=== PATIENT | female | born 1995 | race American Indian/Alaskan Native ===

== ENCOUNTER 2017-02-10 18:39 | Emergency (ER) | payer MEDICAID ==
[2017-02-10 18:53] VITALS: BP 120/57
[2017-02-10 19:28] LABS: Basophils % (Auto) 0.4 % (0.0-1.8); Eosinophils % (Auto) 2.4 % (0.0-4.3); Hematocrit 33.5 % (30.3-42.9); Hemoglobin 10.4 gm/dl (10.1-14.3); Mean Corpuscular HGB Conc 31 % (30-34); Mean Corpuscular Volume 80 fl (79-97); Platelet Count 299 K/mm3 (140-440); Red Cell Distribution Width 16.8 % (13.2-15.2); White Blood Count 11.2 K/mm3 (4.5-11.0)
[2017-02-10 19:29] LABS: Mean Corpuscular Hemoglobin 25 pg (28-32)
[2017-02-10 19:41] LABS: Alanine Aminotransferase 17 units/L (7-56); Albumin 3.7 g/dL (3.9-5); Albumin/Globulin Ratio 1.1 %; Alkaline Phosphatase 68 units/L (35-129); Anion Gap 15 mmol/L; BUN/Creatinine Ratio 16; Blood Urea Nitrogen 8 mg/dL (7-17); Calcium 9.1 mg/dL (8.4-10.2); Carbon Dioxide 27 mmol/L (22-30); Chloride 102.9 mmol/L (98-107); Glucose 88 mg/dL (65-100); Lipase 86 units/L (13-60); Potassium 4.3 mmol/L (3.6-5.0); Sodium 141 mmol/L (137-145); Total Protein 7.1 g/dL (6.3-8.2)
[2017-02-10 20:36] LABS: Bacteria,Urine 1+ /HPF (Negative); Bilirubin,Urine NEG (Negative); Blood,Urine NEG (Negative); Ketones,Urine NEG (Negative); Leukocyte Esterase,Urine MOD (Negative); Nitrite,Urine NEG (Negative); Protein,Urine <15 mg/dL mg/dL (Negative); Urobilinogen,Urine < 2.0 mg/dL (<2.0)
== END 2017-02-11 01:30 | disposition left against medical advice (07) ==
LOC: ED 18:39
DX: R07.9 Chest pain, unspecified (principal); Z53.21 Procedure and treatment not carried out due to patient leaving prior to being seen by health care provider
CPT/HCPCS: 36415; 80053; 81001; 83690; 84703; 85025; 93005; 93010

== ENCOUNTER 2017-02-11 14:34 | Emergency (ER) | payer MEDICAID ==
[2017-02-11 14:56] VITALS: BP 109/74
--- NOTE | 2017-02-11 15:31 | Emergency Department Report ---
Chief Complaint: Chest Pain Stated Complaint: CHEST PAIN Time Seen by Provider: 02/11/17 14:57 - HPI History of Present Illness: 21-year-old female past medical history obesity presents with complaint of treated 3 days of intermittent epigastric pain radiating to the back worse after eating with associated nausea and vomiting. Patient is awake alert and oriented 3 states that her primary symptom is nausea and states that it is worse immediately after eating. Patient states she came to the ED yesterday but eloped before being seen - ROS Review of Systems: 23 days of intermittent epigastric pain with associated nausea and vomiting - Exam Vital Signs: Vital Signs 02/11/17 14:52 Temperature 98.6 F Pulse Rate 77 Respiratory 18 Rate Blood Pressure 109/74 O2 Sat by Pulse 100 Oximetry Physical Exam: Reproducible right upper quadrant and epigastric tenderness on deep palpation MSE screening note: Focused history and physical exam performed. Due to findings the following was ordered: Screening Assessment/Plan/Differential Dx: Epigastric pain, nausea and vomiting 1- This initial assessment/diagnostic orders/clinical plan/ treatment(s) is/are subject to change based on pt's health status, clinical progression and re- assessment by fellow clinical providers in the ED. Further treatment and workup at subsequent clinical provers discretion. Patient/guardians urged not to elope from ED as their condition may be serious if not clinically assessed and managed. 2-differentials include biliary colic 3-slight elevation in lipase. Labs done yesterday. Patient is not . EKG unremarkable. 4-right upper quadrant ultrasound to assess gallbladder 5-will defer decision to do advanced imaging including CT to maintain ED clinician ED Disposition for MSE Condition: Stable
--- NOTE | 2017-02-11 17:16 | Ultrasound Report ---
FINAL REPORT EXAM: US ABDOMEN LIMITED HISTORY: ? gallstone selena, RUQ pain TECHNIQUE: Ultrasound examination of the abdomen PRIORS: None. FINDINGS: Normal-appearing visible portion of the pancreas, aorta, IVC, liver, and right kidney. No upper abdominal ascites. Small shadowing and non shadowing echogenic foci in the gallbladder lumen may be a combination of sludge and very small gallstones. Normal gallbladder wall thickness. No common bile duct distension. No pericholecystic fluid. IMPRESSION: Gallbladder echogenic foci suggestive of sludge and/or very small gallstones
== END 2017-02-12 02:20 | disposition left against medical advice (07) ==
LOC: ED 14:34
DX: R07.9 Chest pain, unspecified (principal); Z53.21 Procedure and treatment not carried out due to patient leaving prior to being seen by health care provider
CPT/HCPCS: 76705; 93005; 93010